=== PATIENT | male | born 2005 | race Caucasian/White ===

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

== ENCOUNTER 2023-07-09 14:40 | Emergency (ER) | payer OTHER ==
[~2023-07-09] VITALS: Ht 185.4 cm; Wt 70.5 kg
[~2023-07-09 14:40] MED LIST changes: -GASTROGRAFIN SOLUTION 30ML As Ordered ONE; -ISOVUE-370 76% 100ML VIAL As Ordered ONE
[2023-07-09 14:41] VITALS: BP 145/86; TEMP 97.4; O2SAT 100
[2023-07-09] MEDS ORDERED: IBUP200T46 PO (15:05)
[2023-07-09] MEDS ORDERED: CELE0.09 (15:05)
[2023-07-09] MEDS ORDERED: MINO100C4 (15:05)
[2023-07-09] MEDS ORDERED: TIZA10TA (15:05)
[2023-07-09] MEDS ORDERED: TRET0.0540 (15:05)
== END 2023-07-09 17:26 | disposition left against medical advice (07) ==
LOC: M ED 14:40
DX: Z53.21 Procedure and treatment not carried out due to patient leaving prior to being seen by health care provider (principal)